=== PATIENT | male | born 1950 | race Caucasian/White ===

== ENCOUNTER 2021-04-25 15:17 | Emergency (ER) | payer OTHER ==
[~2021-04-25] VITALS: Ht 172.7 cm; Wt 90.7 kg
[2021-04-25] MEDS ORDERED: NAPROXEN375 MG PO (18:33)
== END 2021-04-25 18:50 | disposition home or self-care (01) ==
LOC: ER 15:17
DX: S83.8X2A Sprain of other specified parts of left knee, initial encounter (principal); M70.52 Other bursitis of knee, left knee; W01.0XXA Fall on same level from slipping, tripping and stumbling without subsequent striking against object, initial encounter; Y93.89 Activity, other specified; Y92.018 Other place in single-family (private) house as the place of occurrence of the external cause; Y99.8 Other external cause status; Z96.652 Presence of left artificial knee joint

== ENCOUNTER 2022-06-29 09:28 | Outpatient (CLI) | payer OTHER ==
[~2022-06-29 09:28] MED LIST: NAPROXEN375 MG PO
== END 2022-06-29 09:46 | disposition home or self-care (01) ==
LOC: RAD 09:28
PROVIDERS: ATTEND Orthopaedic Surgery
DX: M25.561 Pain in right knee (principal); M25.562 Pain in left knee; S83.202A Bucket-handle tear of unspecified meniscus, current injury, unspecified knee, initial encounter
CPT/HCPCS: 73721